=== PATIENT | female | born 1975 | race Caucasian/White ===

== ENCOUNTER 2023-11-02 17:12 | Emergency (ER) | payer BC, SELFPAY ==
--- NOTE | ~2023-11-02 | US_ITS ---
US pelvic complete w TV Ordering provider: Bull Castellanos MD History: . vaginal bleeding . Comparison: None. Technique: Transabdominal and endovaginal ultrasound of the pelvis (Doppler ultrasound interrogation techniques used as needed for this exam.) FINDINGS: CERVIX: Normal. UTERUS: Measures 10.3x4.7x 5.4 cm in length which is within normal limits and is anteverted. No myom etrial masses. ENDOMETRIUM: Normal in thickness measuring 14.2 mm. (Note: the premenopausal endometrium may measure up to 16 mm when in the secretory phase.) No endometrial masses, cysts or fluid. CUL DE SAC: No free fluid. RIGHT OVARY: Normal in size measuring 5.3 x 2.2 x 3.5 cm. Cystic area seen in the ovary measuring 2.4 x 1.5 x 2.8 cm. Normal echotexture. Doppler vascular flow present. LEFT OVARY: Normal in size measuring 3.1 x 2.6 x 4.5 cm. Cyst measures 2.7 x 2.1 x 2.4 cm. Normal ech otexture. Doppler vascular flow present. ADNEXA: Anechoic tubular structure seen near to the left ovary suggestive of hydrosalpinx.. No mass. IMPRESSION: Highly suggestive left hydrosalpinx. The right ovarian cyst. Otherwise, normal pelvic ultrasound. Reviewed, dictated and finalized at location A.
[2023-11-02 17:21] VITALS: BP 122/75; PULSE 68; RESP 15; TEMP 36.1; O2SAT 100
--- NOTE | 2023-11-02 18:25 | ED.FEMALEGU ---
HPI - Female Genitourinary General Chief complaint: Vaginal Bleeding <Warner Evans APRN - Last Filed: 11/02/23 18:34> Stated complaint: vaginal bleeding, + test <Warner Evans APRN - Last Filed: 11/02/23 18:34> Time Seen by Provider: 11/02/23 18:25 <Warner Evans APRN - Last Filed: 11/02/23 18:34> Focused HPI: Ms. Branham is a 48-year-old female patient presenting to the emergency room today with complaints of heavy vaginal bleeding x3 weeks. She reports she took a test home today and was positive. Denies any abdominal pain or back pain. She contacted her ob gyn and they encouraged her to come into the emergency room for evaluation. She has an appointment to see the OBGYN provider on Sunday. OBGYN- Dr. Reza. General: Well-developed, well nourished, in no apparent distress. Head: Normocephalic, atraumatic. Cardio: Regular rate and rhythm, s1 and s2 normal, no murmur appreciated. Resp: Clear to auscultation bilaterally, no rhonchi, rales, wheezing or rubs. Abdomen: Soft, pliable, bowel sounds present in all quadrants, non-tender to palpation, no organomegly, no CVAT tenderness. : Deferred Patient screened in triage and initial orders placed. Additional care and disposition to be based upon diagnostic testing and treatment. <Warner Evans APRN - Last Filed: 11/02/23 18:34> Source: patient <Warner Evans APRN - Last Filed: 11/02/23 18:34> Mode of arrival: ambulatory <Warner Evans APRN - Last Filed: 11/02/23 18:34> Limitations: no limitations <Warner Evans APRN - Last Filed: 11/02/23 18:34> History of Present Illness HPI Narrative: Agree with HPI <Bull Castellanos MD - Last Filed: 11/03/23 03:02> Review of Systems Review of Systems: All systems reviewed & are unremarkable except as noted in HPI and below <Bull Castellanos MD - Last Filed: 11/03/23 03:02> Constitutional: Constitutional: Reports no additional constitutional complaints <Bull Castellanos MD - Last Filed: 11/03/23 03:02> Respiratory: Respiratory: Reports no additional respiratory complaints <Bull Castellanos MD - Last Filed: 11/03/23 03:02> Gastrointestinal: Gastrointestinal: Reports no additional gastrointestinal complaints <Bull Castellanos MD - Last Filed: 11/03/23 03:02> Genitourinary: Genitourinary: Reports abnormal vaginal bleeding, Denies dysuria, Denies pelvic pain and Denies vaginal discharge <Bull Castellanos MD - Last Filed: 11/03/23 03:02> PMFSH Past Medical History Medical History: Medical History (Updated 11/03/23 @ 03:00 by Bull Castellanos MD) Healthy female adult <Warner Evans APRN - Last Filed: 11/02/23 18:34> Surgical History Surgical History: Surgical History (Updated 11/03/23 @ 03:00 by Bull Castellanos MD) Hx of exploratory laparotomy ectopic removed laparoscopically. <Warner Evans APRN - Last Filed: 11/02/23 18:34> Comments At the time of my signature, I reviewed and agree with the nursing past medical, surgical, social, and family history. There is no relevant family history pertinent to the patient complaint. <Warner Evans APRN - Last Filed: 11/02/23 18:34> Exam Narrative: GENERAL: Well-appearing, well-nourished, and in no acute distress. HEAD: Normocephalic, atraumatic. ENT: Mucous membranes moist. CHEST: Clear to auscultation. No respiratory distress. HEART: Regular rate and rhythm. Normal peripheral pulses. ABDOMEN: Soft, nontender, nondistended. : Normal external anatomy, small amount of dark blood within the vaginal vault with small clot burden. Inferior aspect of cervix identified and there is a small cyst. EXTREMITIES: Normal range of motion. No edema. SKIN: Warm, dry, no rash. NEURO: Alert and oriented x3. PSYCH: Normal mood and affect. <Bull Castellanos MD - Last Filed: 11/03/23 03:02> Course Course Em
[2023-11-02 18:56] LABS: Basophils Absolute Auto 0.2 K/mm3 (0.0-0.1); Basophils Percent Auto 1.8 % (0.2-1.2); Eosinophils Absolute Auto 0.4 K/mm3 (0-0.3); Eosinophils Percent Auto 4.3 % (0-4.4); Hematocrit 36.5 % (37.0-47.0); Hemoglobin 11.6 g/dL (12.0-15.0); Immature Granulocyte Absolute 0.02 K/mm3 (0.00-0.031); Immature Granulocyte Percent A 0.2 % (0-0.5); Immature Platelet Fraction Pct 6.3 % (0.9-11.2); Lymphocytes Absolute Auto 3.46 K/mm3 (0.9-3.2); Lymphocytes Percent Auto 33.5 % (18.3-44.2); Mean Corpuscular HGB Conc 31.8 g/dl (32-36); Mean Corpuscular Hemoglobin 28.1 pg (26-34); Mean Corpuscular Volume 88.4 fl (80-100); Mean Platelet Volume 11.2 fl (7.4-10.4); Monocytes Absolute Auto 0.8 K/mm3 (0.1-0.6); Monocytes Percent Auto 7.3 % (2.6-8.5); Neutrophils Absolute Auto 5.5 K/mm3 (1.3-6.7); Neutrophils Percent Auto 52.9 % (45.5-73.1); Platelet Count Result 408 k/mm3 (150-375); Red Blood Count 4.13 M/mm3 (4.2-5.4); Red Cell Distribution Width 13.9 % (11.5-14.5); White Blood Count 10.3 K/mm3 (4.5-10.0)
[2023-11-02 19:05] LABS: Prothrombin Time 13.5 Seconds (11.1-14.7)
[2023-11-02 19:06] LABS: Alanine Aminotransferase 18 U/L (6-35); Alkaline Phosphatase 51 U/L (38-126); Anion Gap 4 mmol/L (4-12); Aspartate Amino Transferase 28 U/L (14-36); Bilirubin,Total 0.4 mg/dL (0.2-1.3); Blood Urea Nitrogen 8 mg/dL (7-17); Calcium 8.6 mg/dL (8.4-10.2); Carbon Dioxide 25 mmol/L (22-30); Chloride 109 mmol/L (98-107); Estimated CRCL calculation 87 ml/min; Estimated Glomerular Filt Rate > 60; Glucose 85 mg/dL (65-110); Partial Thromboplastin Time 33.5 Seconds (22.3-36.8); Potassium 3.9 mmol/L (3.4-5.0); Sodium 138 mmol/L (137-145)
[2023-11-02 19:23] LABS: Beta HCG Quantitative < 2.39 mIU/ML
--- NOTE | 2023-11-02 21:13 | PC.NURSE ---
US took pt for scan at this time
--- NOTE | 2023-11-02 21:54 | PC.NURSE ---
Pt returned to room 22 at this time
[2023-11-02 23:12] VITALS: BP 123/80; PULSE 74; RESP 16; TEMP 37.2; O2SAT 100
== END 2023-11-02 23:12 | disposition home or self-care (01) ==
PROVIDERS: Nurse Practitioner Family; Emergency Provider Emergency Medicine
DX: N93.9 Abnormal uterine and vaginal bleeding, unspecified (principal); N70.11 Chronic salpingitis
CPT/HCPCS: 36415; 76830; 76856; 80053; 84702; 85025; 85055; 85461; 85610; 85730; 86850; 86900; 86901; 99284